=== PATIENT | male | born 1985 | race Caucasian/White ===

== ENCOUNTER 2021-03-20 20:25 | Emergency (ER) | payer OTHER, SELFPAY ==
[2021-03-20 21:42] LABS: SARS-CoV-2 NAA Rapid Test DETECTED (NotDetected)
[2021-03-20 21:50] LABS: Hemoglobin 16.7 g/dL (13.5-17.5); Mean Corpuscular HGB CONC 34.4 g/dL (32.0-36.0); Mean Corpuscular Hemoglobin 29.3 pg (27.0-33.0); Mean Corpuscular Volume 85.1 fl (81.2-95.1); Mean Platelet Volume 9.3 fl (7.4-10.4); Platelet Count 255 10x3/uL (150-450); RBC Distribution Width 12.7 % (11.5-14.5); White Blood Cell (WBC) Count 6.1 10x3/uL (3.5-10.5)
[2021-03-20 22:01] LABS: ALT (SGPT) 69 U/L (8-55); AST (SGOT) 44 U/L (5-34); Albumin 5.1 g/dL (3.5-5.0); Alkaline Phosphatase 107 U/L (40-110); Anion Gap 17 mmol/L (10-20); BUN (Urea Nitrogen) 13 mg/dL (8.9-20.6); Bilirubin, Total 1.4 mg/dL (0.2-1.2); Calc. Creatinine Clearance 0 mL/min (70-130); Calcium 9.7 mg/dL (7.8-10.44); Carbon Dioxide 24 mmol/L (22-29); Chloride 102 mmol/L (98-107); Glucose 88 mg/dL (70-105); MDiff Complete? YES; Protein, Total 8.1 g/dL (6.0-8.3); Sodium 139 mmol/L (136-145)
[2021-03-20 22:09] LABS: Lymphocytes 21 % (21-51); Monocytes 20 % (0-10); Neutrophil 55 % (42-75); Reactive Lymphocytes 4 % (0-10)
[2021-03-20 22:10] LABS: Platelet Morphology Comment Appears Adequate; RBC Morphology Normal
== END 2021-03-20 22:34 | disposition home or self-care (01) ==
LOC: CSHERS 20:25
DX: U07.1 COVID-19 (principal); I10 Essential (primary) hypertension; K21.9 Gastro-esophageal reflux disease without esophagitis; F17.210 Nicotine dependence, cigarettes, uncomplicated
CPT/HCPCS: 71045; 80053; 84484; 85025; 93005; U0002